=== PATIENT | female | born 1995 | race African-American/Black ===

== ENCOUNTER 2023-04-23 16:28 | Emergency (ER) | payer MEDICAID ==
[~2023-04-23] VITALS: Ht 175.3 cm; Wt 70.0 kg
[2023-04-23 17:00] VITALS: BP 125/78; PULSE 102; RESP 16; TEMP 99.1; O2SAT 100
== END 2023-04-23 17:00 | disposition left against medical advice (07) ==
LOC: ER 16:28
DX: J02.0 Streptococcal pharyngitis (principal); Z53.21 Procedure and treatment not carried out due to patient leaving prior to being seen by health care provider
CPT/HCPCS: 99281